=== PATIENT | female | born 1995 | race Two or more races ===

== ENCOUNTER 2019-09-13 21:41 | Emergency (ER) | payer OTHER ==
[~2019-09-13] VITALS: Ht 165.1 cm; Wt 79.9 kg
[2019-09-13 21:58] VITALS: Ht 165.1 cm; Wt 79.9 kg
[2019-09-13 23:24] VITALS: BP 120/80
== END 2019-09-13 23:24 | disposition home or self-care (01) ==
LOC: ED 21:41
DX: T25.022A Burn of unspecified degree of left foot, initial encounter (principal); X12.XXXA Contact with other hot fluids, initial encounter; Y93.89 Activity, other specified; Y92.89 Other specified places as the place of occurrence of the external cause; Y99.8 Other external cause status
CPT/HCPCS: J1885